=== PATIENT | male | born 2000 | race African-American/Black ===

== ENCOUNTER 2019-12-11 13:45 | Emergency (ER) | payer OTHER ==
[~2019-12-11] VITALS: Ht 170.2 cm; Wt 68.0 kg
[2019-12-11 13:58] VITALS: BP 125/85
== END 2019-12-11 15:51 | disposition left against medical advice (07) ==
LOC: EDBD 13:45 → ER 13:45
DX: M79.602 Pain in left arm (principal); Z53.21 Procedure and treatment not carried out due to patient leaving prior to being seen by health care provider

== ENCOUNTER 2019-12-12 10:23 | Emergency (ER) | payer MEDICAID, OTHER ==
[~2019-12-12] VITALS: Ht 170.2 cm; Wt 68.0 kg
[2019-12-12] MEDS ORDERED: MORPHINE SULFATE 10 MG/ML CPJ IV ONE (12:00)
[2019-12-12 12:18] LABS: BASOPHILS % 0.7 % (0.0-2.0); EOSINOPHILS % 2.7 % (0.0-5.0); HEMATOCRIT. 41.4 % (42.0-52.0); HEMOGLOBIN. 14.2 g/dL (14.0-18.0); LYMPHOCYTES % 15.1 % (20.0-50.0); MEAN CORPUSCULAR HEMOGLOBIN 28.8 pg (28.0-32.0); MEAN CORPUSCULAR VOLUME 84.3 fL (80.0-94.0); MEAN PLATELET VOLUME 12.1 fl (7.4-10.4); MONOCYTES % 8.3 % (2.0-8.0); NEUTROPHILS % 73.2 % (40.0-76.0); PLATELET 97 x1000/uL (130-400); RED BLOOD CELL COUNT 4.91 mill/uL (4.7-6.1); RED CELL DISTRIBUTION WIDTH 13.4 % (11.6-14.6)
[2019-12-12 12:23] LABS: CHLORIDE 99 mEq/L (98-107)
[2019-12-12 12:28] LABS: INR 1.1; PROTHROMBIN TIME 11.5 sec (9.6-11.0)
[2019-12-12 12:44] LABS: CREATINE KINASE 2823 IU/L (39-308)
[2019-12-12] MEDS ORDERED: MORPHINE SULFATE 4 MG/ML CPJ (NOT FOR IM USE) IV ONE ×3 (14:15→19:00)
[2019-12-12] MEDS ORDERED: SODIUM CHLORIDE 0.9% 1,000 ML IV ONE (15:30)
[2019-12-12 20:36] VITALS: BP 131/60
== END 2019-12-12 20:42 | disposition home or self-care (01) ==
LOC: ER 10:23
DX: S42.492D Other displaced fracture of lower end of left humerus, subsequent encounter for fracture with routine healing (principal); T79.A22D Traumatic compartment syndrome of left lower extremity, subsequent encounter; W34.00XD Accidental discharge from unspecified firearms or gun, subsequent encounter; F17.200 Nicotine dependence, unspecified, uncomplicated
CPT/HCPCS: 36415; 73060; 73080; 73090; 80053; 82550; 85025; 85610; 96361; 96374; 96376; 99285; J2270; J7030; L3670